=== PATIENT | female | born 1965 | race Caucasian/White ===

== ENCOUNTER 2023-05-20 08:17 | Outpatient (CLI) | payer BC, SELFPAY ==
[2023-05-20 19:07] LABS: Basophils Absolute Auto 0.1 K/mm3 (0.0-0.1); Basophils Percent Auto 1.1 % (0.2-1.2); Eosinophils Absolute Auto 0.3 K/mm3 (0-0.3); Eosinophils Percent Auto 3.3 % (0-4.4); Hematocrit 43.2 % (37.0-47.0); Hemoglobin 13.8 g/dL (12.0-15.0); Immature Granulocyte Absolute 0.01 K/mm3 (0.00-0.031); Immature Granulocyte Percent A 0.1 % (0-0.5); Lymphocytes Absolute Auto 2.95 K/mm3 (0.9-3.2); Lymphocytes Percent Auto 36.5 % (18.3-44.2); Mean Corpuscular HGB Conc 31.9 g/dl (32-36); Mean Corpuscular Hemoglobin 30.5 pg (26-34); Mean Corpuscular Volume 95.6 fl (80-100); Mean Platelet Volume 11.8 fl (7.4-10.4); Monocytes Absolute Auto 0.6 K/mm3 (0.1-0.6); Monocytes Percent Auto 7.9 % (2.6-8.5); Neutrophils Absolute Auto 4.1 K/mm3 (1.3-6.7); Neutrophils Percent Auto 51.1 % (45.5-73.1); Platelet Count Result 258 k/mm3 (150-375); Red Blood Count 4.52 M/mm3 (4.2-5.4); Red Cell Distribution Width 14.1 % (11.5-14.5); White Blood Count 8.1 K/mm3 (4.5-10.0)
[2023-05-20 19:15] LABS: Alanine Aminotransferase 26 U/L (6-35); Albumin Level 3.9 g/dL (3.5-5.1); Alkaline Phosphatase 86 U/L (38-126); Anion Gap 6 mmol/L (8-16); Aspartate Amino Transferase 28 U/L (14-36); Bilirubin,Total 0.8 mg/dL (0.2-1.3); Blood Urea Nitrogen 12 mg/dL (7-17); Carbon Dioxide 28 mmol/L (22-30); Chloride 106 mmol/L (98-107); Cholesterol 221 mg/dL (0-200); Estimated Glomerular Filt Rate > 60; Glucose 92 mg/dL (65-110); HDL Direct 62 mg/dL; Sodium 140 mmol/L (137-145); Triglycerides 44 mg/dL (<150)
[2023-05-20 19:26] LABS: LDL Cholesterol Direct 114 mg/dL
[2023-05-20 19:47] LABS: Hemoglobin A1C 5.7 % (<5.7)
== END 2023-05-20 08:18 | disposition home or self-care (01) ==
LOC: ANHGOSHLAB 08:19
PROVIDERS: PCP Emergency Medicine; Visit Provider Emergency Medicine
DX: I10 Essential (primary) hypertension (principal); E78.5 Hyperlipidemia, unspecified; R63.5 Abnormal weight gain
CPT/HCPCS: 36415; 80053; 80061; 83036; 84443; 85025

== ENCOUNTER 2024-03-12 15:29 | Outpatient (CLI) | payer BC, SELFPAY ==
--- NOTE | ~2024-03-12 | MM_ITS ---
EXAMINATION: MM screening nati BI w tom HISTORY: Screening TECHNIQUE: Craniocaudal and mediolateral oblique 3-D tomosynthesis images were obtained and synthetic 2-D images were generated. CAD analysis was submitted and interpreted. COMPARISON: No prior mammogram is available for comparison at this institution. BREAST PARENCHYMAL COMPOSITION: Not Dense. The breasts are almost entirely fatty. FINDINGS: There is no evidence of suspicious mass, calcification, or architectural distortion to sugg est malignancy in either breast. There has been no suspicious interval change. IMPRESSION: 1. No mammographic evidence of malignancy. 2. Recommend routine screening mammography in one year. BI-RADS Category 1: Negative Reviewed, dictated and finalized at location B.
== END 2024-03-12 15:30 | disposition home or self-care (01) ==
LOC: ANHIMG 15:30
PROVIDERS: PCP Emergency Medicine; Visit Provider Obstetrics & Gynecology
DX: Z12.31 Encounter for screening mammogram for malignant neoplasm of breast (principal)
CPT/HCPCS: 77063; 77067

== ENCOUNTER 2025-04-05 14:09 | Outpatient (CLI) | payer BC, SELFPAY ==
--- NOTE | ~2025-04-05 | MM_ITS ---
EXAMINATION: MM screening nati BI w tom HISTORY: Screening TECHNIQUE: Craniocaudal and mediolateral oblique 3-D tomosynthesis images were obtained and synthetic 2-D images were generated. CAD analysis was submitted and interpreted. COMPARISON: 03/12/2024 BREAST PARENCHYMAL COMPOSITION: Not dense: There are scattered areas of fibroglandular density. FINDINGS: There is no evidence of suspicious mass, calcification, or architectural distortion to suggest malignancy in either breast. There has been no suspicious interval change. IMPRESSION: 1. No mammographic evidence of malignancy. 2. Recommend routine screening mammography in one year. BI-RADS Category 1: Negative Reviewed, dictated and finalized at location O.
--- OUTSIDE RECORDS SUMMARY | 2025-04-05 14:14 | XMS_ITS | Encounter Summary ---
Author Organization [facility] Address [address] [place] [address] Care Team Providers Care Senior Solutions Workflow Consultant Name Role Phone Gracie Nguyen MD Primary Care Provider [phone] Encounter Details Date Type Department Care Team (Late st Contact Info) Description 08/10/1999 Outpatient Historical [facility] Internal Medicine - [facility] [address] [id number] 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
--- OUTSIDE RECORDS SUMMARY | 2025-04-05 14:14 | XMS_ITS | Encounter Summary ---
Author Organization [facility] Address [address] [place] [address] Care Team Providers Care Chemotherapist Name Role Phone Gracie Nguyen MD Primary Care Provider [phone] Encounter Details Date Type Department Care Team (Late st Contact Info) Description 08/20/2003 Outpatient Historical [facility] Internal Medicine - [facility] [address] [address] [facility] [address] [place] [address] Keisha Avendano MD Social History Tobacco Use Types Packs/Day Years Used Date Smoking Tobacco: Never Assessed Comments Unknown Sex and Gender Information Value Date Recorded Sex Assigned at Not on file 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
--- OUTSIDE RECORDS SUMMARY | 2025-04-05 14:14 | XMS_ITS | Encounter Summary ---
Author Organization [facility] Health Address [address] [facility] [place] [address] Care Team Providers Care Nurse Special Name Role Phone Rody Earl MD Primary Care Provider [phone] Encounter Details Date Type Department Care Team (Late st Contact Info) Description 09/30/2016 [facility] Outpatient Visit EXTERNAL NON-[facility] DEPT Rody Earl MD [address] [place] [phone] Social History Tobacco Use Types Packs/Day Years Used Date Smoking Tobacco: Never Smokeless Tobacco: Never Alcohol Use Standard Drinks/Week Comments No 0 (1 standard drink = 0.6 oz pur e alcohol) Comments No Sex and Gender Information Value Date Recorded Sex Assigned at Not on file 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 Author Blood Pressure < 140/90 Blood Pressure 178/98(2017 2:17 PM CDT) No Flower Robles MA documented as of this encounter Visit Diagnoses Not on filedocumented in this encounter Care Teams Nurse Special Relationship Specialty Start Date End Date Rody Earl MD PCP - General 09/05/08 10/24/18 documented as of this encounter
--- OUTSIDE RECORDS SUMMARY | 2025-04-05 14:14 | XMS_ITS | Encounter Summary ---
Author Organization [facility] Address [address] [place] [address] Care Team Providers Care Gauge Inspector Name Role Phone Gracie Nguyen MD Primary Care Provider [phone] Encounter Details Date Type Department Care Team (Late st Contact Info) Description 02/22/2003 Outpatient Historical [facility] Internal Medicine - [facility] [address] [address] [facility] [address] [place] [address] Keisha Avendano MD Social History Tobacco Use Types Packs/Day Years Used Date Smoking Tobacco: Never Assessed Comments Unknown Sex and Gender Information Value Date Recorded Sex Assigned at Not on file 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
--- OUTSIDE RECORDS SUMMARY | 2025-04-05 14:14 | XMS_ITS | Encounter Summary ---
Author Organization [facility] Address [address] [facility] [place] [address] Care Team Providers Care Cabinet Worker Name Role Phone Rody Earl MD Primary Care Provider [phone] Encounter Details Date Type Department Care Team (Late st Contact Info) Description 06/13/[address] [facility] Outpatient Visit EXTERNAL NON-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
--- OUTSIDE RECORDS SUMMARY | 2025-04-05 14:14 | XMS_ITS | Encounter Summary ---
Author Organization [facility] Address [address] [place] [address] Care Team Providers Care Environmental Department Manager Name Role Phone Gracie Nguyen MD Primary Care Provider [phone] Encounter Details Date Type Department Care Team (Late st Contact Info) Description 01/23/2001 Outpatient Historical [facility] Internal Medicine - [facility] [address] [address] [facility] [address] [place] [address] Keisha Avendano MD Social History Tobacco Use Types Packs/Day Years Used Date Smoking Tobacco: Never Assessed Comments Unknown Sex and Gender Information Value Date Recorded Sex Assigned at Not on file Legal Sex Female 2:38 AM SR RISK MANAGEMENT CONSULTANT Gender Identity Not on file Sexual Orientation Not on file documented as of this encounter Plan of Treatment Not on file documented as of this encounter Visit Diagnoses Not on filedocumented in this encounter Care Teams Environmental Department Manager Relationship Specialty Start Date End Date Gracie Nguyen MD [address] [place] [address] PCP - General Internal Medicine 07/31/18 03/14/23 documented as of this encounter
--- OUTSIDE RECORDS SUMMARY | 2025-04-05 14:14 | XMS_ITS | Encounter Summary ---
Author Organization [facility] Health Address [address] [facility] [place] [address] Care Team Providers Care Radiator Repairer Name Role Phone Rody Earl MD Primary Care Provider [phone] Encounter Details Date Type Department Care Team (Late st Contact Info) Description 06/21/2016 [facility] Outpatient Visit EXTERNAL NON-[facility] DEPT Rody Earl MD [address] [place] [phone] Social History Tobacco Use Types Packs/Day Years Used Date Smoking Tobacco: Never Smokeless Tobacco: Never Alcohol Use Standard Drinks/Week Comments No 0 (1 standard drink = 0.6 oz pur e alcohol) Comments No Sex and Gender Information Value Date Recorded Sex Assigned at Not on file Legal Sex Female 4:24 AM 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
--- OUTSIDE RECORDS SUMMARY | 2025-04-05 14:14 | XMS_ITS | Encounter Summary ---
Author Organization [facility] Address [address] [place] [address] Care Team Providers Care Agribusiness Internship Name Role Phone Gracie Nguyen MD Primary Care Provider [phone] Encounter Details Date Type Department Care Team (Late st Contact Info) Description 04/19/2003 Outpatient Historical [facility] Internal Medicine - [facility] [address] [address] 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
--- OUTSIDE RECORDS SUMMARY | 2025-04-05 14:14 | XMS_ITS | Encounter Summary ---
Author Organization [facility] Address [address] [place] [address] Care Team Providers Care Check Out Cashier Name Role Phone Gracie Nguyen MD Primary Care Provider [phone] Encounter Details Date Type Department Care Team (Late st Contact Info) Description 08/16/[address] 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
--- OUTSIDE RECORDS SUMMARY | 2025-04-05 14:14 | XMS_ITS | Encounter Summary ---
Author Organization [facility] Address [address] [place] [address] Care Team Providers Care Bus Escort Name Role Phone Gracie Nguyen MD Primary Care Provider [phone] Encounter Details Date Type Department Care Team (Late st Contact Info) Description 02/08/2003 Outpatient Historical [facility] Internal Medicine - [facility] [address] [address] [facility] [address] [place] [address] Keisha Avendano MD Social History Tobacco Use Types Packs/Day Years Used Date Smoking Tobacco: Never Assessed Comments Unknown Sex and Gender Information Value Date Recorded Sex Assigned at Not on file 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
--- OUTSIDE RECORDS SUMMARY | 2025-04-05 14:14 | XMS_ITS | Encounter Summary ---
Author Organization [facility] Address [address] [place] [address] Care Team Providers Care Flat Cutter Name Role Phone Gracie Nguyen MD Primary Care Provider [phone] Encounter Details Date Type Department Care Team (Late st Contact Info) Description 01/16/1998 Outpatient Historical [facility] Internal Medicine - [facility] [address] [address] [facility] [address] [place] [address] Keisha Avendano MD Social History Tobacco Use Types Packs/Day Years Used Date Smoking Tobacco: Never Assessed Comments Unknown Sex and Gender Information Value Date Recorded Sex Assigned at Not on file Legal Sex Female 2:38 AM TRAFFIC SIGNAL SUPERVISOR MAINTENANCE Gender Identity Not on file Sexual Orientation Not on file documented as of this encounter Plan of Treatment Not on file documented as of this encounter Visit Diagnoses Not on filedocumented in this encounter Care Teams Flat Cutter Relationship Specialty Start Date End Date Gracie Nguyen MD [address] [place] [address] PCP - General Internal Medicine 07/31/18 03/14/23 documented as of this encounter
--- OUTSIDE RECORDS SUMMARY | 2025-04-05 14:14 | XMS_ITS | Encounter Summary ---
Author Organization [facility] Address [address] [place] [address] Care Team Providers Care Control Director Name Role Phone Gracie Nguyen MD Primary Care Provider Encounter Details Date Type Department Care Team (Late st Contact Info) Description 09/21/1999 Outpatient Historical [facility] Internal Medicine - [facility] [address] [address] [facility] [address] [place] [address] Keisha Avendano MD Social History Tobacco Use Types Packs/Day Years Used Date Smoking Tobacco: Never Assessed Comments Unknown Sex and Gender Information Value Date Recorded Sex Assigned at Not on file Legal Sex Female 2:38 AM TAR HEEL Gender Identity Not on file Sexual Orientation Not on file documented as of this encounter Plan of Treatment Not on file documented as of this encounter Visit Diagnoses Not on filedocumented in this encounter Care Teams Control Director Relationship Specialty Start Date End Date Gracie Nguyen MD [address] [place] [address] PCP - General Internal Medicine 07/31/18 03/14/23 documented as of this encounter
--- OUTSIDE RECORDS SUMMARY | 2025-04-05 14:14 | XMS_ITS | Encounter Summary ---
Author Organization [facility] Address [address] [place] [address] Care Team Providers Care Industrial Spray Painter Name Role Phone Gracie Nguyen MD Primary Care Provider [phone] Encounter Details Date Type Department Care Team (Late st Contact Info) Description 02/22/2002 Outpatient Historical [facility] Internal Medicine - [facility] [address] [address] [facility] [address] [place] [address] Keisha Avendano MD Social History Tobacco Use Types Packs/Day Years Used Date Smoking Tobacco: Never Assessed Comments Unknown Sex and Gender Information Value Date Recorded Sex Assigned at Not on file Legal Sex Female 2:38 AM PIPE INSULATOR Gender Identity Not on file Sexual Orientation Not on file documented as of this encounter Plan of Treatment Not on file documented as of this encounter Visit Diagnoses Not on filedocumented in this encounter Care Teams Industrial Spray Painter Relationship Specialty Start Date End Date Gracie Nguyen MD [address] [place] [address] PCP - General Internal Medicine 07/31/18 03/14/23 documented as of this encounter
--- OUTSIDE RECORDS SUMMARY | 2025-04-05 14:14 | XMS_ITS | Encounter Summary ---
Author Organization [facility] Address [address] [place] [address] Care Team Providers Care Outdoor Fitness Trainer Name Role Phone Gracie Nguyen MD Primary Care Provider [phone] Encounter Details Date Type Department Care Team (Late st Contact Info) Description 02/13/2001 Outpatient Historical [facility] Internal Medicine - [facility] [address] [address] [facility] [address] [place] [address] Keisha Avendano MD Social History Tobacco Use Types Packs/Day Years Used Date Smoking Tobacco: Never Assessed Comments Unknown Sex and Gender Information Value Date Recorded Sex Assigned at Not on file 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
--- OUTSIDE RECORDS SUMMARY | 2025-04-05 14:14 | XMS_ITS | Encounter Summary ---
Author Organization [facility] Health Address [address] [facility] [place] [address] Care Team Providers Care Programmer Engineering And Scientific Name Role Phone Rody Earl MD Primary Care Provider [phone] Encounter Details Date Type Department Care Team (Late st Contact Info) Description 06/18/2016 [facility] Outpatient Visit EXTERNAL NON-[facility] DEPT Rody Earl MD [address] [place] [phone] Social History Tobacco Use Types Packs/Day Years Used Date Smoking Tobacco: Never Smokeless Tobacco: Never Alcohol Use Standard Drinks/Week Comments No 0 (1 standard drink = 0.6 oz pur e alcohol) Comments No Sex and Gender Information Value Date Recorded Sex Assigned at Not on file Legal Sex Female 4:24 AM SUMO WRESTLER Gender Identity Not on file Sexual Orientation [...] on filedocumented in this encounter Care Teams Programmer Engineering And Scientific Relationship Specialty Start Date End Date Rody Earl MD PCP - General 09/05/08 10/24/18 documented as of this encounter
--- OUTSIDE RECORDS SUMMARY | 2025-04-05 14:14 | XMS_ITS | Encounter Summary ---
Author Organization [facility] Address [address] [place] [address] Care Team Providers Care Senior Manufacturing Supervisor Name Role Phone Gracie Nguyen MD Primary Care Provider [phone] Encounter Details Date Type Department Care Team (Late st Contact Info) Description 08/10/1999 Outpatient Historical [facility] Internal Medicine - [facility] [address] [address] [facility] [address] [place] [address] Keisha Avendano MD Social History Tobacco Use Types Packs/Day Years Used Date Smoking Tobacco: Never Assessed Comments Unknown Sex and Gender Information Value Date Recorded Sex Assigned at Not on file Legal Sex Female 2:38 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
--- OUTSIDE RECORDS SUMMARY | 2025-04-05 14:14 | XMS_ITS | Encounter Summary ---
Author Organization [facility] Health Address [address] [facility] [place] [address] Care Team Providers Care Steam Plant Records Clerk Name Role Phone Rody Earl MD Primary Care Provider [phone] Encounter Details Date Type Department Care Team (Late st Contact Info) Description 04/11/2018 [facility] Outpatient Visit EXTERNAL NON-[facility] DEPT Rody Earl MD [address] [place] [phone] Social History Tobacco Use Types Packs/Day Years Used Date Smoking Tobacco: Never Smokeless Tobacco: Never Alcohol Use Standard Drinks/Week Comments No 0 (1 standard drink = 0.6 oz pur e alcohol) Comments No Sex and Gender Information Value Date Recorded Sex Assigned at Not on file Legal Sex Female 4:24 AM REFRACTORY MANAGER Gender Identity Not on file Sexual [...] on filedocumented in this encounter Care Teams Steam Plant Records Clerk Relationship Specialty Start Date End Date Rody Earl MD PCP - General 09/05/08 10/24/18 documented as of this encounter
--- OUTSIDE RECORDS SUMMARY | 2025-04-05 14:14 | XMS_ITS | Encounter Summary ---
Author Organization [facility] Address [address] [place] [address] Care Team Providers Care Senior Accountant Cpa Name Role Phone Gracie Nguyen MD Primary Care Provider [phone] Encounter Details Date Type Department Care Team (Late st Contact Info) Description 02/03/1999 Outpatient Historical [facility] Internal Medicine - [facility] [address] [address] [facility] [address] [place] [address] Keisha Avendano MD Social History Tobacco Use Types Packs/Day Years Used Date Smoking Tobacco: Never Assessed Comments Unknown Sex and Gender Information Value Date Recorded Sex Assigned at Not on file Legal Sex Female 2:38 AM HEAD OF ENGLISH Gender Identity Not on file Sexual Orientation Not on file documented as of this encounter Plan of Treatment Not on file documented as of this encounter Visit Diagnoses Not on filedocumented in this encounter Care Teams Senior Accountant Cpa Relationship Specialty Start Date End Date Gracie Nguyen MD [address] [place] [address] PCP - General Internal Medicine 07/31/18 03/14/23 documented as of this encounter
--- OUTSIDE RECORDS SUMMARY | 2025-04-05 14:14 | XMS_ITS | Encounter Summary ---
Author Organization [facility] Healthcare Address [address] [place] [address] Care Team Providers Care Cellar Packer Name Role Phone Marciano Bell MD Primary Care Provider [phone] Encounter Details Date Type Department Care Team (Late st Contact Info) Description 03/06/2025 Results Follow-Up [facility] Family Medicine at [address] [place] [address] Marciano Bell MD [address] [place] [address] [address] [place] [address] CBC with auto differential, Comprehensive metabolic panel, Lipid panel, Vitamin D 25 hydroxy Social History Tobacco Use Types Packs/Day Years Used Date Smoking Tobacco: Never Smokeless Tobacco: Never AUDIT-C Answer Date Recorded Q1: How often do you have a drink containing alc ohol? Monthly or less 10/12/2024 Q2: How many drinks containi ng alcohol do you have on a typical day when you are drinking? 1 or 2 10/12/2024 Q3: How often do you have si x or more drinks on one occasion? Less than monthly 10/12/2024 PHQ-2 Answer Date Recorded PHQ-2 Total Score (If total score is 3 or more points, staff should administer the PHQ-9) 0 10/12/2024 PHQ-9 Answer Date Recorded PHQ-9 Total Score 0 10/12/2024 Comments Unknown Sex and Gender Information Value Date Recorded Sex Assigned at Not on file Legal Sex Female 10:29 AM DOPE AND FABRIC WORKER Gender Identity Not on file Sexual Orientation Not on file documented as of this encounter Plan of Treatment Scheduled Orders Name Type Priority Associated Diagnoses Orde r Schedule Lipid panel Lab Routine Dyslipidemia Expected: 09/07/2025, Expires: 03/07/2026 documented as of this encounter Visit Diagnoses Diagnosis Dyslipidemia- Primary Other and unspecified hyperlipidemia documented in this encounter Care Teams Cellar Packer Relationship Specialty Start Date End Date Marciano Bell MD [address] [place] [address] [place] [address] PCP - General Family Medicine 10/12/24 documented as of this encounter
--- OUTSIDE RECORDS SUMMARY | 2025-04-05 14:14 | XMS_ITS | Encounter Summary ---
Author Organization [facility] Address [address] [place] [address] Care Team Providers Care Ui Developer With Angular Js Name Role Phone Gracie Nguyen MD Primary Care Provider [phone] Encounter Details Date Type Department Care Team (Late st Contact Info) Description 06/12/2003 Outpatient Historical [facility]3] Internal Medicine - [facility] [address] [address] [facility] [address] [place] [address] Keisha Avendano MD Social History Tobacco Use Types Packs/Day Years Used Date Smoking Tobacco: Never Assessed Comments Unknown Sex and Gender Information Value Date Recorded Sex Assigned at Not on file Legal Sex Female 2:38 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
--- OUTSIDE RECORDS SUMMARY | 2025-04-05 14:14 | XMS_ITS | Clinical Summary ---
Author Organization [facility] Address [address] [facility] [place] [address] Care Team Providers Care Energy Analyst Name Role Phone Unavailable Primary Care Provider Unavailabl e Source Comments [facility],non-owned Affiliates and Associated Physician Practices is amultiple site organization consisting of ambulatory clinics and hospital sitesin [place], [place], [place] and [place]. This disclosure is being madepursuant to the Care Everywhere program and may not contain all information available regarding this patient. Last updated 18.[facility] [employer] Allergies No known active allergies Medications * Be aware that medications may not be up to date on this document. Alwaysverify current medications with the patient. multivitamin daily (THERAGRAN) tablet Take 1 Tab by mouth daily with food. Active FIBER PO Reported on 09/22/2016 Active CALCIUM-VITAMIN D PO Active atorvastatin (LIPITOR) 80 MG tablet TAKE 1 TABLET BY MOUTH EVERY NIGHT AT BEDTIME 90 tablet 3 12/26/2017 Active lisinopril-hydr oCHLOROthiazide (PRINZIDE; ZESTORETIC) 10-12.5 MG tablet Take 2 tablets by mouth once daily 90 tablet 3 04/07/2018 Active ALPRAZolam (XANAX) 0.5 MG tablet Take 0.5-1 tablets by mouth 3 times daily as needed for Anxiety 30 tablet 04/07/2018 Active Active Problems Problem Noted Date Diagnosed Date IGT (impaired glucose tolerance) 01/02/2016 Vitamin D deficiency 05/08/2015 PMS (premenstrual syndrome) 10/26/2012 Hair loss 10/26/2012 Atopic eczema 09/13/2012 Migraine 02/10/2011 Obesity 03/31/2010 Claustrophobia 09/19/2009 Screening for condition 09/05/2008 Overview (05/15/2015): Pap Smear: Date:01/27/08 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 Santos Broussard Mammogram: Date:01/22/08 Essential hypertension, benign 09/05/2008 Hyperlipidemia 09/05/2008 Immunizations Immunization Administration Dates Next Due INFLUENZA VACCINE 05/06/2015,05/16/2014 Influenza Pf Intradermal (ADULT) 09/05/2013 PNEUMOCOCCAL PPSV23 05/25/2012 TDAP (7yrs+) 06/18/2014 TETANUS 08/15/2004 Family History Medical History Relation Name Comments Diabetes Brother Rashes/Skin Problems Brother Diabetes Mother Type 2 Heart Failure Mother Hypercholesterolemia Mother Hypertension Mother Stroke Mother Hypercholesterolemia Sister 1 Rashes/Skin Problems Sister 1 Seizures Sister 1 Diabetes Sister 2 Type 2 Hypertension Sister 2 Relation Name Status Comments Brother Mother Sister 1 Sister 2 Social History Tobacco Use Types Packs/Day Years Used Date Smoking Tobacco: Never Smokeless Tobacco: Never Alcohol Use Standard Drinks/Week Comments No 0 (1 standard drink = 0.6 oz pur e alcohol) Comments No Sex and Gender Information Value Date Recorded Sex Assigned at Not on file 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 Sex 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:24 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 Gender Identity Not on file Sexual Orientation Not on file Last Filed Vital Signs Vital Sign Reading Time Taken Comments Blood Pressure 178/98 04/07/2018 2:17 PM CDT Pulse 74 04/07/2018 2:17 PM CDT Temperature 36.7 C (98 F) 04/07/2018 2:17 PM CDT Respiratory Rate - - Oxygen Saturation 96% 05/25/2012 8:37 AM CDT Inhaled Oxygen Concentration - - Weight 111.5 kg (245 lb 12.8 oz) 04/07/2018 2:17 PM CDT Height 175.3 cm (5' 9) 04/07/2018 2:17 PM CDT Body Mass Index 36.3 04/07/2018 2:17 PM CDT Plan of Treatment Health Maintenance Due Date Last Done Comments COLOGUARD (AGES 45-75) - COLON CA SCREENING 1965 COLON MONITORING 1965 COLONOSCOPY - COLON CA SCREENING 1965 CT COLONOGRAPHY - COLON CA SCREENING 1965 Colorectal Cancer Screening 1965 FIT - COLON CA SCREENING 1965 FLEX SIG - COLON CA SCREENING 1965 HIV SCREENING 1980 HEPATITIS C SCREENING 05/17/1983 HEPATITIS B VACCINE (1 of 3 - 19+ 3-dose series) 1984 MAMMOGRAM 10/26/2014 10/26/2012 PNEUMOCOCCAL VACCINE 50+ (2 of 2 - PCV) 2015 05/25/2012 ZOSTER VACCINE (1 of 2) 2015 PAP with HPV 10/26/2017 10/26/2012 SCREENING FOR DIABETES 10/26/2020 8, 10/26/2017, 01/02/2016, Additional history exists COVID-19 VACCINE ( season) 2024 DTAP/TDAP/TD VACCINES (3 - Td or Tdap) 06/18/2024 06/18/2014, 08/15/2004 DEPRESSION SCREENING 08/15/2024 INFLUENZA VACCINE (#1) 2025 5, 05/16/2014, 09/05/2013 HIB VACCINE Aged Out No longer eligi ble based on patient's age to complete this topic HPV VACCINE Aged Out No longer eligi ble based on patient's age to complete this topic MENINGOCOCCAL (Group B) VACCINE SHARED DECISION-MAKING Aged Out No longer eligible based on patient's age to complete this topic MENINGOCOCCAL GROUPS A/C/Y/W VACCINE Aged Out No longer eligible based on patient's age to complete this topic Goals Goal Patient Goal Type Associated Problems Recent Progress Patient-Stated? Author Blood Pressure < 140/90 Blood Pressure 178/98(2017 2:17 PM CDT) No Flower Robles MA Procedures Procedure Name Priority Date/Time Associated Diagnosis Comments COMPREHENSIVE METABOLIC PANEL Routine 10/26/2017 9:38 AM CDT Annual physical exam Vitamin D deficiency IGT (impaired glucose tolerance) Essential hypertension, benign Hyperlipidemia, unspecified hyperlipidemia type MAMMO BILAT SCREENING Routine 10/26/2012 11:11 AM CDT Other screening mammogram PAP IG LB+HPV HR RFLX 16,18 Routine 10/26/2012 9:42 AM CDT Routine gynecological examination Special screening examination for human papillomavirus (HPV) from Last 3 Months or Most Recently Relevant to Health Maintenance Results * COMPREHENSIVE METABOLIC PANEL (10/26/2017 9:38 AM CDT) Glucose 97 74 - 106 mg/dL [facility] ACCOUNT BILL BUN 10 7 - 21 mg/dL [facility] ACCOUNT BILL Creatinine 0.67 0.50 - 1.30 mg/dL [facility] ACCOUNT BILL eGFR by MDRD >60 >60 mL/min/1.7 3m2 [facility] ACCOUNT BILL eGFR by MDRD >60 >60 mL/min/1.7 3m2 [facility] ACCOUNT BILL Sodium 140 136 - 145 mmol/L [facility] ACCOUNT BILL Potassium 4.4 3.5 - 5.1 mmol/L [facility] ACCOUNT BILL Chloride 105 98 - 107 mmol/L [facility] ACCOUNT BILL CO2 25 22 - 31 mmol/L [facility] ACCOUNT BILL Calcium 9.0 8.5 - 10.1 mg/dL [facility] ACCOUNT BILL Protein Total 7.2 6.4 - 8.2 gm/dL [facility] ACCOUNT BILL Albumin 3.6 3.4 - 5.0 gm/dL [facility] ACCOUNT BILL Bilirubin Total 0.4 0.2 - 1.0 mg/dL [facility] ACCOUNT BILL Alkaline Phosphatase 119 38 - 126 U/L [facility] ACCOUNT BILL AST 34 5 - 40 U/L [facility] ACCOUNT BILL ALT 61 13 - 61 U/L [facility] ACCOUNT BILL Comment:FASTING Blood BLOOD SPECIMEN / Unknown 10/26/2017 9:38 AM CDT 10/26/2017 Narrative Resulting Agency Comment [facility] [address] [place] [phone] us Rody Earl MD LAB - CHEMISTRY ORDERABLES Alize l Result [facility] ACCOUNT BILL [address] [place] [address] * MAMMO SCREENING DIGITAL IMAGE BILAT [id number] (10/26/2012 11:11 AM CDT) Anatomical Region Laterality Modality Breast Bilateral Mammography 10/26/2012 12:1 2 PM CDT Narrative 10/26/2012 1:10 PM CDT DIGITAL BILATERAL SCREENING MAMMOGRAMS WITH CAD CORRELATION DATE: 10/26/2012. PREVIOUS EXAM DATE: None available. INDICATION: Screening. TECHNIQUE: Bilateral craniocaudad (CC) and mediolateral oblique (MLO) views. The study was interpreted with the aid of CAD. TECHNOLOGIST: RT Chloe(R)(M). TISSUE DENSITY: Predominantly fatty. FINDINGS: There is no discrete abnormality. There is no suspicious microcalcification. ASSESSMENT: BI-RADS category 1, negative. RECOMMENDATIONS: Follow-up one year. The above findings should be correlated with physical examination. A relatively nonspecific study should not preclude additional evaluation if suspicious findings are present clinically. An [employer] Certified Facility. [facility] utilize e-channel as a reminder system to notify patients of their next recommended mammograms. Procedure Note Deloris Rosas MD - 10/26/2012 DIGITAL BILATERAL SCREENING MAMMOGRAMS WITH CAD CORRELATION DATE: 10/26/2012. PREVIOUS EXAM DATE: None available. INDICATION: Screening. TECHNIQUE: Bilateral craniocaudad (CC) and mediolateral oblique (MLO) views. The study was interpreted with the aid of CAD. TECHNOLOGIST: RT Chloe(R)(M). TISSUE DENSITY: Predominantly fatty. FINDINGS: There is no discrete abnormality. There is no suspicious microcalcification. ASSESSMENT: BI-RADS category 1, negative. RECOMMENDATIONS: Follow-up one year. The above findings should be correlated with physical examination. A relatively nonspecific study should not preclude additional evaluation if suspicious findings are present clinically. An [employer] Certified Facility. [facility] utilize e-channel as a reminder system to notify patients of their next recommended mammograms. us Barbara King DO MAMMO ORDERABLES Final Result * PAP SMEAR IG HPV HR RFLX 16/18 (PO REF LAB) (10/26/2012 9:42 AM CDT) Diagnosis [facility] ACCOUNT BILL Comment:NEGATIVE FOR INTRAEP ITHELIAL LESION AND MALIGNANCY. Specimen Adequacy [facility] ACCOUNT BILL Comment: Satisfactory for evaluation. Endocervical and/or squamous metaplastic cells (endocervical component) are present. Clinician Provided ICD9 [facility] ACCOUNT BILL Comment: V72.31 ; Routine gynecological examination V73.81 ; Special screening examination, human papillomavirus [HPV] Performed by [facility] ACCOUNT BILL Comment:Amina Hermosillo, Cyto technologist (ASCP) Comment . [facility] ACCOUNT BILL Note [facility] ACCOUNT BILL Comment: The Pap smear is a screening test designed to aid in the detection of premalignant and malignant conditions of the uterine cervix. It is not a diagnostic procedure and should not be used as the sole means of detecting cervical cancer. Both false-positive and false-negative reports do occur. . IGLBP CPT Code Automation [facility] ACCOUNT BILL Comment: This liquid based ThinPrep(R) pap test was screened with the use of an image guided system. Human papillomavirus High Risk Negative Negative [facility] ACCOUNT BILL Comment: This high-risk HPV test detects thirteen high-risk types (16/18/31/33/35/39/45/51/52/56/58/59/68) without differentiation. . MICROSCOPIC CYTOLOGIC EXAMINATION OF SMEAR OF SPECIMEN FROM FEMALE GENITAL TRACT PREPARED USING PAPANICOLAOU TECHNIQUE / Unknown 10/26/2012 9:42 AM CDT 10/27/2012 1:09 AM CDT Narrative [facility] ACCOUNT BILL - 10/31/2012 8:09 PM CDT Source.............Cervical;Endocervical LMP / Prev Treat...WHO=[id number] No. of containers..01 CYTYC Thin Prep Vial Resulting Agency [facility] [id number] [place] Barbara King DO LAB - PATHOLOGY/CYTOLOGY ORDERAB LES Final Result [facility] ACCOUNT BILL [address] [place] [address] from Last 3 Months or Most Recently Relevant to Health Maintenance Insurance [facility]
--- OUTSIDE RECORDS SUMMARY | 2025-04-05 14:14 | XMS_ITS | Encounter Summary ---
Author Organization [facility] Address [address] [place] [address] Care Team Providers Care Cork Tipper Name Role Phone Gracie Nguyen MD Primary Care Provider [phone] Encounter Details Date Type Department Care Team (Late st Contact Info) Description 03/12/2003 Outpatient Historical [facility] Internal Medicine - [facility] [address] [address] [facility] [address] [place] [address] Keisha Avendano MD Social History Tobacco Use Types Packs/Day Years Used Date Smoking Tobacco: Never Assessed Comments Unknown Sex and Gender Information Value Date Recorded Sex Assigned at Not on file 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
--- OUTSIDE RECORDS SUMMARY | 2025-04-05 14:14 | XMS_ITS | Encounter Summary ---
Author Organization [facility] Address [address] [place] [address] Care Team Providers Care Training And Documentation Specialist Name Role Phone Gracie Nguyen MD Primary Care Provider [phone] Encounter Details Date Type Department Care Team (Late st Contact Info) Description 03/01/2000 Outpatient Historical [facility] Internal Medicine - [facility] [address] [address] [facility] [address] [place] [address] Keisha Avendano MD Social History Tobacco Use Types Packs/Day Years Used Date Smoking Tobacco: Never Assessed Comments Unknown Sex and Gender Information Value Date Recorded Sex Assigned at Not on file 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
--- OUTSIDE RECORDS SUMMARY | 2025-04-05 14:14 | XMS_ITS | Encounter Summary ---
Author Organization [facility] Health Address [address] [facility] [place] [address] Care Team Providers Care Director Semiconductor Name Role Phone Rody Earl MD Primary Care Provider [phone] Encounter Details Date Type Department Care Team (Late st Contact Info) Description 04/14/2018 [facility] Outpatient Visit EXTERNAL NON-[facility] DEPT Rody Earl MD [address] [place] [phone] Social History Tobacco Use Types Packs/Day Years Used Date Smoking Tobacco: Never Smokeless Tobacco: Never Alcohol Use Standard Drinks/Week Comments No 0 (1 standard drink = 0.6 oz pur e alcohol) Comments No Sex and Gender Information Value Date Recorded Sex Assigned at Not on file 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
--- OUTSIDE RECORDS SUMMARY | 2025-04-05 14:14 | XMS_ITS | Encounter Summary ---
Author Organization [facility] Address [address] [place] [address] Care Team Providers Care Farm Contractor Buyer Name Role Phone Gracie Nguyen MD Primary Care Provider [phone] Encounter Details Date Type Department Care Team (Late st Contact Info) Description 11/17/1999 Outpatient Historical [facility] Internal Medicine - [facility] [address] [address] [facility] [address] [place] [address] Keisha Avendano MD Social History Tobacco Use Types Packs/Day Years Used Date Smoking Tobacco: Never Assessed Comments Unknown Sex and Gender Information Value Date Recorded Sex Assigned at Not on file Legal Sex Female 2:38 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
--- OUTSIDE RECORDS SUMMARY | 2025-04-05 14:14 | XMS_ITS | Encounter Summary ---
Author Organization [facility] Health Address [address] [facility] [place] [address] Care Team Providers Care Mrb Engineer Name Role Phone Rody Earl MD Primary Care Provider [phone] Encounter Details Date Type Department Care Team (Late st Contact Info) Description 09/24/2016 [facility] Outpatient Visit EXTERNAL NON-[facility] DEPT Rody Earl MD [address] [place] [phone] Social History Tobacco Use Types Packs/Day Years Used Date Smoking Tobacco: Never Smokeless Tobacco: Never Alcohol Use Standard Drinks/Week Comments No 0 (1 standard drink = 0.6 oz pur e alcohol) Comments No Sex and Gender Information Value Date Recorded Sex Assigned at Not on file Legal Sex Female 4:24 AM VOUCHER EXAMINER Gender Identity Not on file Sexual Orientation [...] on filedocumented in this encounter Care Teams Mrb Engineer Relationship Specialty Start Date End Date Rody Earl MD PCP - General 09/05/08 10/24/18 documented as of this encounter
--- OUTSIDE RECORDS SUMMARY | 2025-04-05 14:14 | XMS_ITS | Clinical Summary ---
Author Organization [facility] Address [address] [place] [address] Phone Care Team Providers Care Forest Ranger Name Role Phone Unavailable Primary Care Provider Unavailabl e Allergies No known active allergies Medications cyclobenzaprine (FLEXERIL) 10 mg tablet Take 1 Tablet (10 mg) by mouth 3 times daily as needed for Spasm. 60 Tablet 01/23/20 Active Additional Information Patient not taking.Reported on 03/02/2022 fluticasone propionate (FLONASE) 50 mcg/spray [place], Suspension nasal inhaler Administer 2 Sprays in each nostril daily. Active cholecalciferol, Vitamin D3, 50 mcg (2,000 unit) Tablet Take 4,000 Units by mouth daily. Active clobetasoL (TEMOVATE) 0.05 % Cream APPLY TO ARMS AND LEGS TWICE DAILY 12/22/19 Active melatonin 10 mg Tablet Take 10 mg by mouth nightly as needed. Active atorvastatin (LIPITOR) 80 mg tabletIndications: Mixed hyperlipidemia Take 1 Tablet (80 mg) by mouth daily at bedtime. 90 Tablet 3 03/02/20 22 Active lisinopriL (PRINIVIL) 20 mg tabletIndications: Essential hypertension Take 1 Tablet (20 mg) by mouth daily. 90 Tablet 3 06/17/20 22 Active meloxicam (Mobic) 15 mg tabletIndications: Arthralgia of multiple sites Take 1 Tablet (15 mg) by mouth daily. 30 Tablet 1 06/29/20 22 Active predniSONE (DELTASONE) 20 mg tabletIndications: Polyarthralgia 40mg (2 tablets) for the first 5 days and then 20mg (1 tablet) for the next 5 days. 15 Tablet 07/02/20 22 Active Active Problems Patient Care Coordination No te Formatting of this note migh t be different from the original. 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 Problem Noted Date Diagnosed Date Endometrial polyp 03/02/2022 Obesity (BMI 30.0-34.9) 10/01/2019 Abnormal uterine bleeding (AUB) 09/14/2018 Vitamin D deficiency 08/01/2018 Primary osteoarthritis of both knees 07/31/2018 Essential hypertension 07/31/2018 Mixed hyperlipidemia 07/31/2018 Prediabetes 07/31/2018 Resolved Problems Problem Noted Date Diagnosed Date Resolved Date Obesity 09/14/2018 10/01/2019 Acute meniscal tear of left knee 07/31/2018 10/01/2019 Immunizations Immunization Administration Dates Next Due (ADACEL/BOOSTRIX)(10 YR UP) TDAP VACCINE, 0.5ML, IM 06/18/2014 (SHINGRIX)(50 YRS UP) ZOSTER VACCINE RECOMBINANT, 0.5 ML, IM 03/02/2022 (TDVAX)(7 YRS UP) TETANUS AN D DIPHTHERIA TOXOIDS, ADSORBED (2 LF OF TETANUS TOXOID AND 2 LF OF DIPHTHERIA TOXOID), 0.5ML (PF), IM 08/15/2004 INFLUENZA VACCINE QUADRIVALENT 6 MOS UP IM 07/31 INFLUENZA VACCINE QUADRIVALENT 6 MOS UP PF IM ,05/01/2020 Influenza Seasonal Unspecified Formulation IM ,05/16/2014 Pneumococcal Polysaccharide Vacc 23-carlo IM [facility] 05/25/2012 Family History Medical History Relation Name Comments Diabetes Brother 2 Jones Diabetes Brother 3 Donavan Healthy Daughter Leticia Reilly Healthy Father Jan Holland Other Father Jan Holland shortly af ter spouse Diabetes Mother Matilda Holland Heart Disease Mother Matilda Holland Hypertension Sister 1 Sherri Mental Retardation Sister 1 Sherri Other Sister 1 Sherri 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 Diabetes Sister 2 Mallika Heart Disease Sister 2 Mallika cardiac stenti ng Hypertension Sister 2 Mallika Breast Cancer Neg Hx Colon Cancer Neg Hx Ovarian Cancer Neg Hx Relation Name Status Comments Brother 1 Devang Alive Brother 2 Jones Alive Brother 3 Donavan Alive Daughter Leticia Reilly Alive Father Jan Holland Maternal Grandfather Maternal Grandmother Mother Matilda Holland (Age 82) mini stro ke after pneumonia, CAD Paternal Grandfather Paternal Grandmother Sister 1 Sherri Alive Sister 2 Mallika Alive Social History Tobacco Use Types Packs/Day Years Used Date Smoking Tobacco: Never Smokeless Tobacco: Never Alcohol Use Standard Drinks/Week Comments Yes 1 (1 standard drink = 0.6 oz pure alcohol) Glass of wine with dinner every once in a while Comments No Sex and Gender Information Value Date Recorded Sex Assigned at Not on file Legal Sex Female 2:38 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 Gender Identity Not on file Sexual Orientation Not on file Occupation Industry Job Start Date Job End Date Not on file Not on file Not on file Not on file Last Filed Vital Signs Vital Sign Reading Time Taken Comments Blood Pressure 134/78 07/02/2022 7:50 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 Pulse 83 07/02/2022 7:50 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 Temperature 36.7 C (98.1 F) 07/02/2022 7:50 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 Respiratory Rate 16 07/02/2022 7:50 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 Oxygen Saturation 93% 07/02/2022 7:50 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 Inhaled Oxygen Concentration - - Weight 99.3 kg (219 lb) 07/02/2022 7:50 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 Height 170.2 cm (5' 7) 07/02/2022 7:50 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 Body Mass Index 34.3 07/02/2022 7:50 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 Plan of Treatment Health Maintenance Due Date Last Done Comments HEPATITIS B VACCINES (1 of 3 - 19+ 3-dose series) 1984 COLORECTAL SCREENING 2010 Colorectal Cancer Screening 2010 FIT-DNA Q 3 years 2010 FIT/FOBT Q 1 year 2010 Flex Sig/CT Colonography Q 5 years 2010 PAP SMEAR 08/25/2021 08/25/2018 BREAST CANCER SCREENING 01/09/2022 01/09/2021, 10/26 ZOSTER VACCINE (2 of 2) 04/27/2022 03/02/2022 CERVICAL CANCER SCREENING 08/25/2023 HPV/Cotest (21-29) 08/25/2023 08/25/2018 HPV/Cotest (30-65) 08/25/2023 08/25/2018 COVID-19 Vaccine (2023-2 5 season) 2024 02/07/2021, 01/17/2021 DTAP/TDAP/TD VACCINES (2 - T d or Tdap) 06/18/2024 06/18/2014, 08/15/2004 INFLUENZA VACCINE (#1) 2025 , 05/01/2020, 10/01/2019, Additional history exists Procedures Procedure Name Priority Date/Time Associated Diagnosis Comments MAMMO SCREEN BILAT W OR WO CAD Routine 01/09/2021 8:14 AM CDT Visit for screening mammogram CERV/VAG CYTO SCREEN PAP W/HPV Routine 08/25/2018 11:30 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 Well woman exam with routine gynecological exam Screening for human papillomavirus (HPV) Encounter for Papanicolaou smear for cervical cancer screening from Last 3 Months or Most Recently Relevant to Health Maintenance Results * MAMMO SCREEN BILAT W OR WO CAD (01/09/2021 8:14 AM CDT) Anatomical Region Laterality Modality Breast Bilateral Mammography 01/09/2021 8:14 AM CDT Impressions 01/09/2021 1:40 PM CDT IMPRESSION: 1. Asymmetry in the central left breast on MLO view. RECOMMENDATIONS: Left diagnostic mammogram and possible ultrasound. DICTATION LOCATION: [facility] Narrative 01/09/2021 1:40 PM CDT MAMMO SCREEN BILAT W OR WO CAD DATE: 01/09/2021 8:14 AM HISTORY: Routine screening. TECHNIQUE: Full field digital craniocaudal and mediolateral oblique projections of both breasts were obtained. Computer aided diagnosis was performed. COMPARISON: 01/22/2008 BREAST COMPOSITION: Scattered fibroglandular densities. FINDINGS: No suspicious mass, suspicious microcalcifications, or architectural distortion in the right breast. New asymmetry is present in the central left breast on MLO view at posterior depth. OVERALL FINAL ASSESSMENT: BI-RADS CATEGORY 0: Incomplete, needs additional imaging evaluation Procedure Note Susan Arellano MD - 01/09/2021 MAMMO SCREEN BILAT W OR WO CAD DATE: 01/09/2021 8:14 AM HISTORY: Routine screening. TECHNIQUE: Full field digital craniocaudal and mediolateral oblique projections of both breasts were obtained. Computer aided diagnosis was performed. COMPARISON: 01/22/2008 BREAST COMPOSITION: Scattered fibroglandular densities. FINDINGS: No suspicious mass, suspicious microcalcifications, or architectural distortion in the right breast. New asymmetry is present in the central left breast on MLO view at posterior depth. OVERALL FINAL ASSESSMENT: BI-RADS CATEGORY 0: Incomplete, needs additional imaging evaluation IMPRESSION: 1. Asymmetry in the central left breast on MLO view. RECOMMENDATIONS: Left diagnostic mammogram and possible ultrasound. DICTATION LOCATION: [facility] Gracie Nguyen MD MAMMO ORDERABLES Final Result * CERV/VAG CYTO SCREEN PAP W/HPV (08/25/2018 11:30 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) CLINICAL INFORMATION Information not provided 08/30/2018 8:53 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 [facility] LAST MENSTRUAL PERIOD INFORMATION NOT PROVIDED 08/30/2018 8:53 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 [facility] PREV PAP: INFORMATION NOT PROVIDED 08/30/2018 8:53 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 [facility] PREV BX: INFORMATION NOT PROVIDED 08/30/2018 8:53 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 [facility] SOURCE Endocervix 08/30/2018 8:53 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 [facility] ADEQUACY: SEE COMMENT 08/30/2018 8:53 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 [facility] Comment: Satisfactory for evaluation. Endocervical/transformation zone component absent. Age and/or menstrual status not provided PAP INTERP Negative for intraepithelial lesion or malignancy. 08/30/2018 8:53 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 [facility] COMMENT This Pap test has been evaluated with computer assisted technology. 08/30/2018 8:53 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 [email or web address] PLANT HR MANAGER: SEE COMMENT 2018 8:53 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 [facility] Comment: ASHLEE, CT(ASCP) CT screening location: [place] [address] [place], [place] [address] EXPLANATORY NOTE SEE COMMENT 019 8:53 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 [email or web address] Comment: EXPLANATORY NOTE: The Pap is a screening test for cervical cancer. It is not a diagnostic test and is subject to false negative and false positive results. It is most reliable when a satisfactory sample, regularly obtained, is submitted with relevant clinical findings and history, and when the Pap result is evaluated along with historic and current clinical information. HPV E6/E7 Not Detected Not Detected 08/30/2018 8:53 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 [facility] Comment: This test was performed using the APTIMA HPV Assay ([employer] This assay detects E6/E7 viral messenger RNA (mRNA) from 14 high-risk HPV types (16,18,31,33,35,39,45,51,52,56,58,59,66,68). The analytical performance characteristics of this assay have been determined by [employer]. The modifications have not been cleared or approved by the FDA. This assay has been validated pursuant to the CLIA regulations and is used for clinical purposes. Genital SWAB OF ENDOCERVIX / Unknown Collection / Unknown 08/25/2018 11:30 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 08/25/2018 4:09 PM CORRESPONDENCE CLERK Narrative [facility] - 08/30/2018 8:53 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 Performing Organization Information: Site ID: [id number] Name: [facility] Address: [address] [place] [address] Director: Andrei Calero D.O., MPH Site ID: [id number] [facility] Address: [address] [address] Director: Adrienne Vidal Stacia Bolden NP PATHOLOGY/CYTOLOGY ORD ERABLES Final Result [facility] from Last 3 Months or Most Recently Relevant to Health Maintenance Insurance [facility] OPEN ACCESS HMO
--- OUTSIDE RECORDS SUMMARY | 2025-04-05 14:14 | XMS_ITS | Encounter Summary ---
Author Organization [facility] Address [address] [place] [address] Care Team Providers Care Feeder Catcher Name Role Phone Gracie Nguyen MD Primary Care Provider [phone] Encounter Details Date Type Department Care Team (Late st Contact Info) Description 12/12/[address] 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
--- OUTSIDE RECORDS SUMMARY | 2025-04-05 14:14 | XMS_ITS | Encounter Summary ---
Author Organization [facility] Address [address] [place] [address] Care Team Providers Care Entry Level Software Developer Name Role Phone Gracie Nguyen MD Primary Care Provider [phone] Encounter Details Date Type Department Care Team (Late st Contact Info) Description 08/10/2001 Outpatient Historical [facility] Internal Medicine - [facility] [address] [id number] [address] [place] [address] Keisha Avendano MD Social History Tobacco Use Types Packs/Day Years Used Date Smoking Tobacco: Never Assessed Comments Unknown Sex and Gender Information Value Date Recorded Sex Assigned at Not on file 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
--- OUTSIDE RECORDS SUMMARY | 2025-04-05 14:14 | XMS_ITS | Clinical Summary ---
Author Organization [facility] [address] Address [address] [place] [address] Care Team Providers Care Power Tool Repairer Name Role Phone Marciano Bell MD Primary Care Provider [phone] Allergies No known active allergies Medications clobetasoL (TEMOVATE) 0.05 % cream APPLY TO ARMS AND LEGS TWICE DAILY 2 Active CombiPatch 0.05-0.14 mg/[address] 1 patch on the skin 2 (two) times a week Active aspirin 81 mg enteric coated tablet Take 1 tablet (81 mg total) by mouth daily 5 11/28/19 26 Active clobetasoL (TEMOVATE) 0.05 % ointment Apply topically 2 (two) times a day Active meloxicam (MOBIC) 15 mg tabletIndicatio ns:Back strain, sequela Take 1 tablet (15 mg total) by mouth daily 30 tablet 5 5 09/07/19 26 Active lisinopriL (PRINIVIL,ZESTR IL) 40 mg tabletIndicatio ns:Hypertension , essential Take 1 tablet (40 mg total) by mouth daily 90 tablet 1 5 09/07/19 26 Active rosuvastatin (CRESTOR) 40 mg tabletIndicatio ns:Dyslipidemia Take 1 tablet (40 mg total) by mouth daily 90 tablet 3 5 Active lisinopriL (PRINIVIL,ZESTR IL) 40 mg tabletIndicatio ns:Hypertension , essential Take 1 tablet (40 mg total) by mouth daily 90 tablet 1 02/28/202 5 03/11/20 Discontinu ed(Reorder ) rosuvastatin (CRESTOR) 40 mg tabletIndicatio ns:Dyslipidemia Take 1 tablet (40 mg total) by mouth daily 90 tablet 3 5 03/11/20 Discontinu ed(Reorder ) progesterone (PROMETRIUM) 200 mg capsule Take 1 tablet by mouth daily 03/11/20 Discontinu ed(Therapy completed) metroNIDAZOLE (FLAGYL) 500 mg tablet Take 1 tablet (500 mg total) by mouth every 12 (twelve) hours 03/11/20 Discontinu ed(Therapy completed) estradioL (VIVELLE-DOT) 0.05 mg/[address] 1 patch on the skin 2 (two) times a week 03/11/20 Discontinu ed(Therapy completed) Active Problems Problem Noted Date Diagnosed Date Overweight with body mass in dex (BMI) of 28 to 28.9 in adult 10/12/2024 Assessment & Plan (10/12/2024 1:15 PM NUTRITION PROGRAM INSTRUCTOR): Chronic. Uncontrolled. Goal: 145lb Recommend Nutritional every other Tuesday Seminar. Recommended Medication :None. Dyslipidemia 10/12/2024 Assessment & Plan (10/12/2024 1:22 PM NUTRITION PROGRAM INSTRUCTOR): Overall Condition Chronic Condition: Uncontrolled. Treatment: Lab: [facility], Imaging: Calcium Scoring Heart CT, Referral: Consider Assembler Musical Equipment, Recommended Therapeutic Lifestyle Modification, and Medication Changes: Consider Repatha with Assembler Musical Equipment depending on Calcium scan. Follow up in 3 months Aggressive Therapeutic Lifestyle changes: 1.Cardio and Resistance Training Exercises 2. Unprocessed Predominantly Plant Source Diet. 3. Reduce Saturated/Trans/Cholesterol/omega-6 fat from diet. 4. Recommended [place]-3/[place]-unsaturated(MUFA)/Poly-unsaturated(PUFA) Rich Diet: Flax Seeds, Walnuts, [place] Nuts, Mushrooms, See-weed/Sea Vegetables 5. Oil free lifestyle, if you have to, then prefer Extra [place] Cold Pressed [place] or Avocado Oil. Hypertension, essential 10/12/2024 Assessment & Plan (10/12/2024 1:17 PM NUTRITION PROGRAM INSTRUCTOR): Overall Condition Stable and Well-controlled. Treatment: Continue Present Management Follow up in 6 months Encounters Date Type Department Care Team Description 03/11/2025 2:45 PM CDT Office Visit [facility] Family Medicine at [address] [place] [address] Marciano Bell MD Hypertension, essential (Primary Dx); Back strain, sequela; Dyslipidemia; Need for vaccination 03/06/2025 Results Follow-Up [facility] Medicine at [address] [place] [id number] Marciano Bell MD CBC with auto differential, Comprehensive metabolic panel, Lipid panel, Vitamin D 25 hydroxy from Last 3 Months Immunizations Immunization Administration Dates Next Due DT 08/15/2004 Influenza, Quadrivalent, Spl it, Intramuscular 07/31/2018,09/05/2013 Influenza, Quadrivalent, Spl it, Preservative Free, Intramuscular 04/30/2021,05/01/2020 Influenza, Trivalent, IM (MDV) 05/16/2014 Influenza, Trivalent, Split, Preservative Free, Intradermal 09/05/2013 Influenza, Unspecified 05/11/2024(Deferr ed: Patient decision),05/06/2015 Pfizer SARS-CoV-2 Monovalent Vaccination (12+ Yrs) PURPLE 02/07/2021,01/17/2021 Pneumococcal Polysaccharide PPV23 05/25/2012 Td, adsorbed 08/15/2004 Tdap 03/11/2025,06/18/2014 ZOSTER Recombinant 03/02/2022 Medical History Medical History Date Comments Hypertension 2004 Hyperlipidemia Family History Medical History Relation Name Comments Diabetes Brother Alcohol abuse Father Diabetes Mother Diabetes Sister 1 defects Sister 2 Relation Name Status Comments Brother Alive Father Mother Sister 1 Alive Sister 2 Alive Social History Tobacco Use Types Packs/Day Years Used Date Smoking Tobacco: Never Smokeless Tobacco: Never Tobacco Cessation:Counseling Given: Not Answered AUDIT-C Answer Date Recorded Q1: How often [...] on file Legal Sex Female 10:29 AM NUTRITION PROGRAM INSTRUCTOR Gender Identity Not on file Sexual Orientation Not on file Obstetrics History Last Filed Vital Signs Vital Sign Reading Time Taken Comments Blood Pressure 138/80 03/11/2025 2:23 PM CDT Pulse 82 03/11/2025 2:23 PM CDT Temperature 37 C (98.6 F) 03/11/2025 2:23 PM CDT Respiratory Rate 14 03/11/2025 2:23 PM CDT Oxygen Saturation 97% 03/11/2025 2:23 PM CDT Inhaled Oxygen Concentration - - Weight 85.7 kg (188 lb 14.4 oz) 03/11/2025 2:23 PM CDT Height 170.2 cm (5' 7.01) 03/11/2025 2:23 PM CD T Body Mass Index 29.58 03/11/2025 2:23 PM CDT Plan of Treatment Health Maintenance Due Date Last Done Comments Cervical Cancer Screening 1965 Hepatitis C Screening 1965 Hepatitis B Screening 1983 Zoster Vaccine (2 of 2) 04/27/2022 03/02/2022 Covid-19 Vaccine ( season) 2024 02/07/2021, 01/17/2021 Breast Cancer Screening-Mammogram 03/12/2025 03/12/2024, 10/26/2012 Influenza Vaccine (#1) 2025 , 05/01/2020, 07/31/2018, Additional history exists Depression Screening 10/12/2025 10/12/2024, 10/12/19 Regular Well Visit/Exam 18-64 10/12/2025 10/12/2024 Colon Cancer Screening-DNA Stool 05/12/2026 05/12/2023 DTaP/Tdap/Td Vaccine (4 - Td or Tdap) 03/11/2035 03/11/2025, 06/18/2014, 08/15/2004, Additional history exists Pneumococcal vaccine <65 Aged Out 05/25/2012 No longer eligible based on patient's age to complete this topic Procedures Procedure Name Priority Date/Time Associated Diagnosis Comments VITAMIN D 25 HYDROXY Routine 03/05/2025 7:53 AM CDT Vitamin D deficiency LIPID PANEL Routine 03/05/2025 7:53 AM CDT Dyslipidemia COMPREHENSIVE METABOLIC PANEL Routine 03/05/2025 7:53 AM CDT Hypertension, essential CBC WITH AUTO DIFFERENTIAL Routine 03/05/2025 7:53 AM CDT Hypertension, essential SCREENING MAMMOGRAM Schedule Routine, Read Routine (OP Routine) 03/12/2024 3:05 PM CDT STOOL DNA COLOGUARD Routine 05/12/2023 4:37 PM CDT from Last 3 Months or Most Recently Relevant to Health Maintenance Results * (ABNORMAL) CBC with auto differential (03/05/2025 7:53 AM CDT) WBC 7.2 3.8 - 10.8 Thousand/u L [facility] RBC, POC 4.81 3.80 - 5.10 Million/uL [facility] Hgb 14.6 11.7 - 15.5 g/dL [facility] Hct 45.7(H) 35.0 - 45.0 % [facility] MCV 95.0 80.0 - 100.0 fL [facility] MCH 30.4 27.0 - 33.0 pg [facility] MCHC 31.9(L) 32.0 - 36.0 g/dL [facility] Comment: For adults, a slight decrease in the calculated MCHC value (in the range of 30 to 32 g/dL) is most likely not clinically significant; however, it should be interpreted with caution in correlation with other red cell parameters and the patient's clinical condition. Rdw 12.6 11.0 - 15.0 % [facility] Platelets 254 140 - 400 Thousand/u L [facility] MPV 12.0 7.5 - 12.5 fL [facility] Neutrophils, abs 2,614 1,500 - 7,800 cells/uL [facility] Lymphocytes, abs 3,096 850 - 3,900 cells/uL [facility] Monocyte abs 648 200 - 950 cells/uL [facility] Eosinophils, abs 706(H) 15 - 500 cells/uL [facility] Basophils, abs 137 0 - 200 cells/uL [facility] Neutrophils 36.3 % [facility] Lymphocyte pct 43.0 % [facility] Monocytes 9.0 % [facility] Eosinophils 9.8 % [facility] Basophils 1.9 % [facility] Blood 03/05/2025 7:53 AM CDT 03/05/2025 7:54 AM CDT Narrative [facility] - 03/06/2025 1:40 AM CDT FASTING:YES FASTING: YES us Marciano Bell MD LAB BLOOD ORDERABLES Final Resul t [facility] [address] [place] [address] * Vitamin D 25 hydroxy (03/05/2025 7:53 AM CDT) Vitamin D 25-OH 47 30 - 100 ng/mL [facility] Comment: Vitamin D Status 25-OH Vitamin D: Deficiency: <20 ng/mL Insufficiency: 20 - 29 ng/mL Optimal: > or = 30 ng/mL For 25-OH Vitamin D testing on patients on D2-supplementation and patients for whom quantitation of D2 and D3 fractions is required, the [facility]TM) 25-OH VIT D, (D2,D3), LC/MS/MS is recommended: order code 05839 (patients >2yrs). See Note 1 Note 1 For additional information, please refer to http://education.Lendsquare/faq/FUA467 (This link is being provided for informational/ educational purposes only.) Blood 03/05/2025 7:53 AM CDT 03/05/2025 7:54 AM CDT Narrative [facility] - 03/06/2025 1:40 AM CDT FASTING:YES FASTING: YES Marciano Bell MD LAB BLOOD ORDERABLES Final Resul t [facility] [address] [id number] * (ABNORMAL) Lipid panel (03/05/2025 7:53 AM CDT) Cholesterol 358(H) <200 mg/dL [facility] HDL 69 > OR = 50 mg/dL [facility] Triglycerides 70 <150 mg/dL [facility] LDL 271(H) mg/dL (calc) [facility] Comment: LDL-C levels > or = 190 mg/dL may indicate familial hypercholesterolemia (FH). Clinical assessment and measurement of blood lipid levels should be considered for all first degree relatives of patients with an FH diagnosis. LDL Cholesterol (LDL-C) levels > or = 300 mg/dL may indicate homozygous familial hypercholesterolemia (HoFH). Untreated, these extremely high LDL-C levels can result in premature CV events and mortality. Patients should be identified early and provided appropriate interventions to reduce the cumulative LDL-C burden from . For questions about testing for familial hypercholesterolemia, please call [facility] at .[email or web address].[email or web address] dome [place].INFO. Rosalba T, et al. J National Lipid Association Recommendations for Patient-Centered Management of Dyslipidemia: Part 1 Journal of Clinical Lipidology 2015;9(2), 129-169. Anjali Koch et al. (2014). Homozygous familial hypercholesterolaemia: new insights and guidance for clinicians to improve detection and clinical management. Heart Journal, 35(32), 7420-3314. Reference range: <100 Desirable range <100 mg/dL for primary prevention; <70 mg/dL for patients with CHD or diabetic patients with > or = 2 CHD risk factors. LDL-C is now calculated using the Maile calculation, which is a validated novel method providing better accuracy than the Friedewald equation in the estimation of LDL-C. Tushar BETANCUR et al. AARON. 2013;310(19): 5729-1022 (http://education.Ink361.TMAT/faq/UKT529) Chol/HDL ratio 5.2(H) <5.0 (calc) [facility] Non-HDL, (LDL+VLDL) 289(H) <130 mg/dL (calc) [facility] Comment: Non-HDL level > or = 220 is very high and may indicate genetic familial hypercholesterolemia (FH). Clinical assessment and measurement of blood lipid levels should be considered for all first-degree relatives of patients with an FH diagnosis. For patients with diabetes plus 1 major ASCVD risk factor, treating to a non-HDL-C goal of <100 mg/dL (LDL-C of <70 mg/dL) is considered a therapeutic option. Blood 03/05/2025 7:53 AM CDT 03/05/2025 7:54 AM CDT Narrative [facility] - 03/06/2025 1:40 AM CDT FASTING:YES FASTING: YES us Marciano Bell MD LAB BLOOD ORDERABLES Final [facility]ul t [facility] [address] [place] [address] * Comprehensive metabolic panel (03/05/2025 7:53 AM CDT) [facility] Glucose 93 65 - 99 mg/dL [facility] Comment: Fasting reference interval BUN 18 7 - 25 mg/dL [facility] Creatinine 0.61 0.50 - 1.03 mg/dL [facility] eGFR 103 > OR = 60 mL/min/1.7 3m2 [facility] BUN/creat ratio SEE NOTE: (calc) [facility] Comment: Not Reported: BUN and Creatinine are within reference range. Sodium 138 135 - 146 mmol/L [facility] Potassium, pl 4.5 3.5 - 5.3 mmol/L [facility] Chloride 104 98 - 110 mmol/L [facility] CO2 27 20 - 32 mmol/L [facility] Calcium 9.4 8.6 - 10.4 mg/dL [facility] Protein, sr 6.5 6.1 - 8.1 g/dL [facility] Albumin 4.4 3.6 - 5.1 g/dL [facility] GLOBULIN 2.1 1.9 - 3.7 g/dL (calc) [facility] Alb/glob ratio 2.1 1.0 - 2.5 (calc) [facility] Bilirubin, total 0.7 0.2 - 1.2 mg/dL [facility] Alk phos 53 37 - 153 U/L [facility] AST 16 10 - 35 U/L [facility] ALT (SGPT) 13 6 - 29 U/L [facility] Blood 03/05/2025 7:53 AM CDT 03/05/2025 7:54 AM CDT Narrative [facility] - 03/06/2025 1:40 AM CDT FASTING:YES FASTING: YES Marciano Bell MD LAB BLOOD ORDERABLES Final Resul t [facility] [address] [place] [address] * Screening Mammogram (03/12/2024 3:05 PM CDT) Anatomical Region Laterality Modality Breast N/A Mammography Historical Provider IMG MAMMO PROCEDURES Alize l Result * Stool DNA - Cologuard (05/12/2023 4:37 PM CDT) Stool Historical Provider LAB BODY FLUIDS AND STOOL S ORDERABLES Final Result EXTERNAL LAB from Last 3 Months or Most Recently Relevant to Health Maintenance Insurance [facility] ACCESS CHOICE [facility] ACCESS CHOICE Care Teams Power Tool Repairer Relationship Specialty Start Date End Date Marciano Bell MD [address] [place] [address] PCP - General Family Medicine 10/12/24
--- OUTSIDE RECORDS SUMMARY | 2025-04-05 14:14 | XMS_ITS | Encounter Summary ---
Author Organization [facility] Address [address] [place] [address] Care Team Providers Care Complex Commercial Litigation Paralegal Name Role Phone Gracie Nguyen MD Primary Care Provider [phone] Encounter Details Date Type Department Care Team (Late st Contact Info) Description 04/05/[address] [facility] Internal Medicine - [facility] [address] [address] [facility] [address] [place] [address] Keisha Avendano MD Social History Tobacco Use Types Packs/Day Years Used Date Smoking Tobacco: Never Assessed Comments Unknown Sex and Gender Information Value Date Recorded Sex Assigned at Not on file Legal Sex Female 2:38 AM YARROW GATHERER Gender Identity Not on file Sexual Orientation Not on file documented as of this encounter Plan of Treatment Not on file documented as of this encounter Visit Diagnoses Not on filedocumented in this encounter Care Teams Complex Commercial Litigation Paralegal Relationship Specialty Start Date End Date Gracie Nguyen MD [address] [place] [address] PCP - General Internal Medicine 07/31/18 03/14/23 documented as of this encounter
--- OUTSIDE RECORDS SUMMARY | 2025-04-05 14:14 | XMS_ITS | Encounter Summary ---
Author Organization [facility] Address [address] [place] [address] Care Team Providers Care Security Specialist Name Role Phone Rody Earl MD Primary Care Provider [phone] Encounter Details Date Type Department Care Team (Late st Contact Info) Description 06/18/2016 [facility] Outpatient Visit EXTERNAL NON-[facility] DEPT Rody Earl MD [address] [place] [id number] Social History Tobacco Use Types Packs/Day Years Used Date Smoking Tobacco: Never Smokeless Tobacco: Never Alcohol Use Standard Drinks/Week Comments No 0 (1 standard drink = 0.6 oz pur e alcohol) Comments No Sex and Gender Information Value Date Recorded Sex Assigned at Not on file Legal Sex Female 4:24 AM PLATE FURNACE OPERATOR Gender Identity Not on file Sexual Orientation [...] on filedocumented in this encounter Care Teams Security Specialist Relationship Specialty Start Date End Date Rody Earl MD PCP - General 09/05/08 10/24/18 documented as of this encounter
--- OUTSIDE RECORDS SUMMARY | 2025-04-05 14:14 | XMS_ITS | Encounter Summary ---
Author Organization [facility] Address [address] [place] [address] Care Team Providers Care Oxygen Equipment Technician Name Role Phone Gracie Nguyen MD Primary Care Provider [phone] Encounter Details Date Type Department Care Team (Late st Contact Info) Description 05/31/2003 Outpatient Historical [facility] Internal Medicine - [facility] [address] [id number] [facility] [address] [place] [address] Keisha Avendano MD Social History Tobacco Use Types Packs/Day Years Used Date Smoking Tobacco: Never Assessed Comments Unknown Sex and Gender Information Value Date Recorded Sex Assigned at Not on file Legal Sex Female 2:38 AM INTERMODAL CUSTOMER SERVICE Gender Identity Not on file Sexual Orientation Not on file documented as of this encounter Plan of Treatment Not on file documented as of this encounter Visit Diagnoses Not on filedocumented in this encounter Care Teams Oxygen Equipment Technician Relationship Specialty Start Date End Date Gracie Nguyen MD [address] [place] [address] PCP - General Internal Medicine 07/31/18 03/14/23 documented as of this encounter
--- OUTSIDE RECORDS SUMMARY | 2025-04-05 14:14 | XMS_ITS | Encounter Summary ---
Author Organization [facility] Address [address] [place] [address] Care Team Providers Care Computer Information Science Professor Name Role Phone Gracie Nguyen MD Primary Care Provider [phone] Encounter Details Date Type Department Care Team (Late st Contact Info) Description 03/08/2002 Outpatient Historical [facility] Internal Medicine - [facility] [address] [address] [facility] [address] [place] [address] Keisha Avendano MD Social History Tobacco Use Types Packs/Day Years Used Date Smoking Tobacco: Never Assessed Comments Unknown Sex and Gender Information Value Date Recorded Sex Assigned at Not on file Legal Sex Female 2:38 AM SUPPLY CHAIN CONSULTANT Gender Identity Not on file Sexual Orientation Not on file documented as of this encounter Plan of Treatment Not on file documented as of this encounter Visit Diagnoses Not on filedocumented in this encounter Care Teams Computer Information Science Professor Relationship Specialty Start Date End Date Gracie Nguyen MD [address] [place] [address] PCP - General Internal Medicine 07/31/18 03/14/23 documented as of this encounter
--- OUTSIDE RECORDS SUMMARY | 2025-04-05 14:14 | XMS_ITS | Encounter Summary ---
Author Organization [facility] Address [address] [place] [address] Care Team Providers Care Engineering Recruiter Name Role Phone Gracie Nguyen MD Primary Care Provider [phone] Encounter Details Date Type Department Care Team (Late st Contact Info) Description 07/09/2003 Outpatient Historical [facility] Internal Medicine - [facility] [address] [address] [facility] [address] [place] [address] Keisha Avendano MD Social History Tobacco Use Types Packs/Day Years Used Date Smoking Tobacco: Never Assessed Comments Unknown Sex and Gender Information Value Date Recorded Sex Assigned at Not on file Legal Sex Female 2:38 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
== END 2025-04-05 14:10 | disposition home or self-care (01) ==
LOC: ANHFOHIMG 14:11
PROVIDERS: PCP Family Medicine; Visit Provider Obstetrics & Gynecology
DX: Z12.31 Encounter for screening mammogram for malignant neoplasm of breast (principal)
CPT/HCPCS: 77063; 77067